=== PATIENT | female | born 1940 | race Caucasian/White ===

== ENCOUNTER 2016-03-02 10:41 | Emergency (ER) | payer OTHER, MEDICARE | END 2016-03-02 12:50 | disposition home or self-care (01) | LOC: ER 11:06 → FASTR 12:50 | DX: S52.501A Unspecified fracture of the lower end of right radius, initial encounter for closed fracture (principal); W01.0XXA Fall on same level from slipping, tripping and stumbling without subsequent striking against object, initial encounter ==